=== PATIENT | female | born 1970 | race Caucasian/White ===

== ENCOUNTER → 2017-12-02 | Outpatient (CLI) | payer BC ==
--- NOTE | 2017-12-02 10:30 | RAD ---
Right upper quadrant abdominal ultrasound, 12/02/2017: History: Right upper quadrant tenderness The gallbladder is within normal limits in size. There is no sonographic evidence of cholelithiasis. The gallbladder rooney are not thickened. The common hepatic duct is of normal caliber. There is no evidence of a hepatic mass or bile duct dilatation. The visualized portions of the pancreas and right kidney are unremarkable. IMPRESSION: No significant abnormality is detected.
--- NOTE | 2017-12-02 13:09 | RAD ---
DATE: 12/02/2017 EXAM: DIGITAL SCREEN BILAT W/CAD HISTORY: Routine screening COMPARISON: Baseline study This study was interpreted with the benefit of Computerized Aided Detection (CAD). The breast parenchyma is heterogeneously dense, which could reduce sensitivity of mammography. Breast parenchyma level C. FINDINGS: There is a 2.3 cm nodule at the 12:00 location in the left breast. Some of its margins are smooth while others are obscured by adjacent dense fibroglandular tissue. There is a suggestion of a 13 mm smooth nodule in the right breast laterally, as best seen on the cc view. It is not clearly seen on the oblique view. A few scattered microcalcifications are present. The distribution suggests a benign etiology. IMPRESSION: Smooth bilateral breast nodules are most likely cysts. Bilateral breast ultrasound is suggested for confirmation. BI-RADS CATEGORY: 0 INCOMPLETE: NEEDS ADDITIONAL IMAGING EVALUATION AND/OR PRIOR MAMMOGRAMS FOR COMPARISON. RECOMMENDED FOLLOW-UP: ADD ADDITIONAL IMAGING PQRS compliance statement: Patient information was entered into a reminder system with a target due date for the next mammogram. Mammography is a sensitive method for finding small breast cancers, but it does not detect them all and is not a substitute for careful clinical examination. A negative mammogram does not negate a clinically suspicious finding and should not result in delay in biopsying a clinically suspicious abnormality. "Our facility is accredited by the [employer] Mammography Program."
== END | disposition home or self-care (01) ==
LOC: US 08:44
PROVIDERS: ATTEND Nurse Practitioner Family
DX: Z12.31 Encounter for screening mammogram for malignant neoplasm of breast (principal); R10.11 Right upper quadrant pain; N63.10 Unspecified lump in the right breast, unspecified quadrant; N63.20 Unspecified lump in the left breast, unspecified quadrant
CPT/HCPCS: 76705; 77067

== ENCOUNTER → 2017-12-09 | Outpatient (CLI) | payer BC ==
--- NOTE | 2017-12-09 09:00 | RAD ---
Diagnostic Limited bilateral breast ultrasound 12/09/2017 Clinical indication: Bilateral breast circumscribed masses Findings: Limited right breast ultrasound: Limited right breast ultrasound of the 9 to 11:00 position, demonstrating a circumscribed simple appearing cyst at 10:00 position 3 cm from the nipple measuring 1.1 x 0.6 x 1.2 cm. At the 11:00 position, there is an additional simple appearing cysts measuring up to 1.1 cm. Limited left breast ultrasound: There is a simple appearing cyst in the retroareolar left breast at the 12:00 position corresponding to mass seen on prior mammogram measuring 1.8 x 1.0 x 2.2 cm. Impression: Simple bilateral breast cysts. Recommend patient return to bilateral screening mammogram with a target date of November 2018. BI-RADS CATEGORY: 2 BENIGN FINDING(S) RECOMMENDED FOLLOW-UP: 12M 12 MONTH FOLLOW-UP PQRS compliance statement: Patient information was entered into a reminder system with a target due date for the next mammogram. Mammography is a sensitive method for finding small breast cancers, but it does not detect them all and is not a substitute for careful clinical examination. A negative mammogram does not negate a clinically suspicious finding and should not result in delay in biopsying a clinically suspicious abnormality. "Our facility is accredited by the [employer] Mammography [employer]."
== END | disposition home or self-care (01) ==
LOC: US 07:29
PROVIDERS: ATTEND Family Medicine
DX: N63.10 Unspecified lump in the right breast, unspecified quadrant (principal); N63.20 Unspecified lump in the left breast, unspecified quadrant
CPT/HCPCS: 76641